=== PATIENT | male | born 1965 | race Caucasian/White ===

== ENCOUNTER 2018-12-12 05:32 | Inpatient (IN) | payer OTHER ==
[~2018-12-12] VITALS: Ht 185.4 cm; Wt 133.2 kg
--- NOTE | 2018-12-12 05:49 | NUR ---
PT IN HOSPITAL GOWN. PT ON 3L N/C OF O2. PT VSS. WILL CONTINUE TO MONITOR. PT GOING TO RAD AT THIS TIME.
[2018-12-12 06:27] LABS: BASOPHILS # (AUTO) 0.08 x10^3/uL (0-0.1); BASOPHILS % (AUTO) 0 % (0-1); EOSINOPHILS % (AUTO) 0 % (1-7); LYMPHOCYTES # (AUTO) 0.88 x10^3/uL (1-3.4); LYMPHOCYTES % (AUTO) 5 % (22-44); MD NO; MEAN CORPUSCULAR HEMOGLOBIN 30.7 pg (27.5-34.5); MEAN CORPUSCULAR HGB CONC 34.6 g/dL (33.2-36.2); MEAN CORPUSCULAR VOLUME 88.7 fL (81-97); MEAN PLATELET VOLUME 8.6 fL (7.4-10.4); MONOCYTES # (AUTO) 0.63 x10^3/uL (0.2-0.8); MONOCYTES % (AUTO) 4 % (2-9); NEUTROPHILS # (AUTO) 16.35 x10^3/uL (1.8-6.8); NEUTROPHILS % (AUTO) 91 % (42-75); PLATELET COUNT 252 x10^3/uL (130-400); RED BLOOD COUNT 5.31 x10^6/uL (4.38-5.82)
[2018-12-12] MEDS ORDERED: SODIUM CHLORIDE FLUSH 10ML SYR IVF ONE (06:30)
[2018-12-12 06:35] LABS: ALBUMIN 3.9 g/dL (3.4-5.0); ANION GAP 9 mmol/L (5-15); CALCIUM 8.9 mg/dL (8.5-10.1); CHLORIDE 112 mmol/L (98-107); CREATININE 1.05 mg/dL (0.7-1.3)
[2018-12-12 06:37] LABS: CREATINE KINASE, TOTAL 434 U/L (39-308)
--- NOTE | 2018-12-12 06:48 | NUR ---
PT RESTING CALMLY IN BED. VSS. BEDSIDE REPORT TO SOLA CONDON.
[2018-12-12] MEDS ORDERED: SODIUM CHLORIDE 0.9% 1,000 ML IV ONE (07:00)
--- NOTE | 2018-12-12 08:40 | NUR ---
SBAR TO ENRIQUE CONDON VIA TELEPHONE
[2018-12-12] MEDS ORDERED: FENTANYL PF 250 MCG/5ML ONE (09:35)
[2018-12-12] MEDS ORDERED: PROPOFOL 10 MG/ML, 20ML ONE (10:06)
[2018-12-12] MEDS ORDERED: SUCCINYLCHOLINE 20 MG/ML, 10ML ONE (10:06)
[2018-12-12] MEDS ORDERED: CEFAZOLIN 1,000 MG ONE (10:06)
[2018-12-12] MEDS ORDERED: DEXAMETHASONE 4 MG/ML, 1ML ONE (10:06)
[2018-12-12] MEDS ORDERED: ROCURONIUM 10MG/ML,5ML ONE (10:06)
[2018-12-12] MEDS ORDERED: ONDANSETRON 2MG/ML, 2ML ONE (10:06)
[2018-12-12] MEDS ORDERED: PROMETHAZINE 12.5 MG SUPP PR PRN (10:30)
[2018-12-12] MEDS ORDERED: MIDAZOLAM 1 MG/ML, 2ML IV PRN (10:30)
[2018-12-12] MEDS ORDERED: PROMETHAZINE 25 MG SUPP PR PRN (10:30)
[2018-12-12] MEDS ORDERED: DIAZEPAM 5 MG/ML, 2ML IVPush PRN (10:30)
[2018-12-12] MEDS ORDERED: MEPERIDINE/PF 25MG/0.5ML IVPush PRN (10:30)
[2018-12-12] MEDS ORDERED: ONDANSETRON ODT 8 MG PO PRN (10:30)
[2018-12-12] MEDS ORDERED: OXYcodone 5 MG/5 ML ORAL.SOL UDC PO PRN (10:30)
[2018-12-12] MEDS ORDERED: DIPHENHYDRAMINE 50 MG/ML, 1ML IVPush PRN (10:30)
[2018-12-12] MEDS ORDERED: EPHEDRINE 50 MG/ML, 1ML IM PRN (10:30)
[2018-12-12] MEDS ORDERED: PROMETHAZINE 25 MG/ML, 1ML IV PRN (10:30)
[2018-12-12] MEDS ORDERED: ONDANSETRON 2MG/ML, 2ML IV PRN ×2 (10:30→14:00)
[2018-12-12] MEDS ORDERED: hydrALAzine 20 MG/ML, 1ML IV PRN (10:30)
[2018-12-12] MEDS ORDERED: MORPHINE SULFATE 4 MG/ML, 1ML IVPush PRN (10:30)
[2018-12-12] MEDS ORDERED: EPHEDRINE 50 MG/ML, 1ML IVPush PRN (10:30)
[2018-12-12] MEDS ORDERED: METOPROLOL 1 MG/ML, 5ML IV PRN (10:30)
[2018-12-12] MEDS ORDERED: ONDANSETRON 2MG/ML, 2ML IVPush PRN (11:00)
[2018-12-12] MEDS ORDERED: ONDANSETRON ODT 4 MG PO PRN (11:00)
[2018-12-12] MEDS ORDERED: LABETALOL 5MG/ML, 20ML IVPush PRN (11:00)
[2018-12-12] MEDS ORDERED: METOPROLOL 1 MG/ML, 5ML ONE (11:22)
[2018-12-12] MEDS ORDERED: MEPERIDINE/PF 25MG/ML,1ML ONE (11:47)
[2018-12-12] MEDS ORDERED: FENTANYL PF 100 MCG/2ML ONE (11:51)
[2018-12-12] MEDS: FENTANYL PF 100 MCG/2ML IV PRN ×4 (11:52→12:20)
[2018-12-12 12:07] LABS: FREE T4 (FREE THYROXINE) 1.03 ng/dL (0.76-1.46)
[2018-12-12] MEDS ORDERED: OXYcodone 5 MG/5 ML ORAL.SOL UDC ONE (12:33)
[2018-12-12 13:25] VITALS: BP 109/60
[2018-12-12] MEDS: POTASSIUM CHLORIDE 20 MEQ in D5%-0.45% NACL 1,000 ML IV SCH ×2 (14:00→22:02)
[2018-12-12] MEDS: KETOROLAC 30 MG/1 ML IV SCH ×2 (14:54→22:01)
[2018-12-12] MEDS ORDERED: CEFTRIAXONE PMX 1GM/50ML 50 ML IV SCH (15:00)
[2018-12-12] MEDS: CEFAZOLIN PMX 2GM/50ML 50 ML IVPB SCH (17:51)
[2018-12-12 19:32] VITALS: BP 102/67
[2018-12-12] MEDS ORDERED: DOXYCYCLINE 100MG TABLET PO SCH (21:00)
[2018-12-12] MEDS: D5%-0.45% NACL 1,000 ML IV SCH (21:00)
[2018-12-12] MEDS: SODIUM CHLORIDE FLUSH 10ML SYR IVF SCH (21:00)
[2018-12-12 23:50] VITALS: BP 95/61
[2018-12-13] MEDS: D5%-0.45% NACL 1,000 ML IV SCH ×3 (01:37→19:37)
[2018-12-13] MEDS: CEFAZOLIN PMX 2GM/50ML 50 ML IVPB SCH (01:37)
[2018-12-13 02:04] VITALS: BP 99/62
[2018-12-13 04:34] VITALS: BP 111/63
[2018-12-13 05:47] LABS: BASOPHILS # (AUTO) 0.02 x10^3/uL (0-0.1); BASOPHILS % (AUTO) 0 % (0-1); EOSINOPHILS # (AUTO) 0.01 x10^3/uL (0-0.4); EOSINOPHILS % (AUTO) 0 % (1-7); LYMPHOCYTES # (AUTO) 1.97 x10^3/uL (1-3.4); LYMPHOCYTES % (AUTO) 15 % (22-44); MD NO; MEAN CORPUSCULAR HEMOGLOBIN 30.7 pg (27.5-34.5); MEAN CORPUSCULAR HGB CONC 34.4 g/dL (33.2-36.2); MEAN CORPUSCULAR VOLUME 89.3 fL (81-97); MEAN PLATELET VOLUME 8.8 fL (7.4-10.4); MONOCYTES # (AUTO) 1.35 x10^3/uL (0.2-0.8); MONOCYTES % (AUTO) 11 % (2-9); NEUTROPHILS # (AUTO) 9.59 x10^3/uL (1.8-6.8); NEUTROPHILS % (AUTO) 74 % (42-75); PLATELET COUNT 230 x10^3/uL (130-400); RED BLOOD COUNT 4.04 x10^6/uL (4.38-5.82); RED CELL DISTRIBUTION WIDTH 13.6 % (9.4-14.8)
[2018-12-13 05:49] LABS: CHLORIDE 111 mmol/L (98-107)
[2018-12-13] MEDS: KETOROLAC 30 MG/1 ML IV SCH (05:59)
[2018-12-13] MEDS: POTASSIUM CHLORIDE 20 MEQ in D5%-0.45% NACL 1,000 ML IV SCH (05:59)
[2018-12-13 06:05] LABS: ALANINE AMINOTRANSFERASE 20 U/L (12-78); ALKALINE PHOSPHATASE 54 U/L (45-117); ANION GAP 5 mmol/L (5-15); BILIRUBIN,TOTAL 0.4 mg/dL (0.2-1.0); CALCIUM 8.3 mg/dL (8.5-10.1); CREATININE 1.11 mg/dL (0.7-1.3); THYROID STIMULATING HORMONE 0.899 mIU/L (0.358-3.740); TOTAL PROTEIN 5.5 g/dL (6.4-8.2)
[2018-12-13 08:05] VITALS: BP 111/56
[2018-12-13] MEDS ORDERED: OMNIPAQUE 350 MG/ML, 75ML BOTTLE ONE (09:09)
[2018-12-13] MEDS: SENNA/DOCUSATE TABLET PO SCH (09:18)
[2018-12-13] MEDS: OXYcodone/APAP 5/325MG TABLET PO PRN ×2 (09:19→16:54)
[2018-12-13] MEDS: SODIUM CHLORIDE FLUSH 10ML SYR IVF SCH ×2 (09:21→19:37)
[2018-12-13] MEDS: ENOXAPARIN 40 MG/0.4 ML SQ SCH (14:14)
[2018-12-13 16:15] VITALS: BP 101/57
[2018-12-13 20:38] VITALS: BP 110/63
[2018-12-14] MEDS: OXYcodone/APAP 5/325MG TABLET PO PRN ×4 (00:22→19:19)
[2018-12-14 01:50] VITALS: BP 101/59
[2018-12-14] MEDS: POLYETHYLENE GLYCOL 17 GM PACKET PO PRN (04:47)
[2018-12-14] MEDS: D5%-0.45% NACL 1,000 ML IV SCH ×3 (04:48→19:20)
[2018-12-14 05:38] LABS: CHLORIDE 109 mmol/L (98-107)
[2018-12-14 05:51] LABS: ALANINE AMINOTRANSFERASE 22 U/L (12-78); ALBUMIN 2.8 g/dL (3.4-5.0); ALKALINE PHOSPHATASE 51 U/L (45-117); ANION GAP 5 mmol/L (5-15); BILIRUBIN,TOTAL 0.6 mg/dL (0.2-1.0); CALCIUM 7.6 mg/dL (8.5-10.1); CREATININE 0.75 mg/dL (0.7-1.3); TOTAL PROTEIN 5.3 g/dL (6.4-8.2)
[2018-12-14 06:15] LABS: BASOPHILS # (AUTO) 0.02 x10^3/uL (0-0.1); BASOPHILS % (AUTO) 0 % (0-1); EOSINOPHILS # (AUTO) 0.16 x10^3/uL (0-0.4); EOSINOPHILS % (AUTO) 2 % (1-7); LYMPHOCYTES # (AUTO) 2.14 x10^3/uL (1-3.4); LYMPHOCYTES % (AUTO) 23 % (22-44); MD NO; MEAN CORPUSCULAR HEMOGLOBIN 31.1 pg (27.5-34.5); MEAN CORPUSCULAR HGB CONC 35.2 g/dL (33.2-36.2); MEAN CORPUSCULAR VOLUME 88.3 fL (81-97); MEAN PLATELET VOLUME 8.2 fL (7.4-10.4); MONOCYTES # (AUTO) 0.97 x10^3/uL (0.2-0.8); MONOCYTES % (AUTO) 11 % (2-9); NEUTROPHILS # (AUTO) 5.91 x10^3/uL (1.8-6.8); NEUTROPHILS % (AUTO) 64 % (42-75); PLATELET COUNT 183 x10^3/uL (130-400); RED BLOOD COUNT 3.46 x10^6/uL (4.38-5.82); RED CELL DISTRIBUTION WIDTH 13.8 % (9.4-14.8)
[2018-12-14 07:58] VITALS: BP 121/71
[2018-12-14] MEDS: SENNA/DOCUSATE TABLET PO SCH (08:58)
[2018-12-14] MEDS: SODIUM CHLORIDE FLUSH 10ML SYR IVF SCH ×2 (09:01→19:19)
[2018-12-14 14:05] VITALS: BP 110/58
[2018-12-14] MEDS: ENOXAPARIN 40 MG/0.4 ML SQ SCH (14:06)
[2018-12-14 18:59] VITALS: BP 107/64
[2018-12-14] MEDS ORDERED: SODIUM CHLORIDE 0.9% 1,000ML IVBOLUS ONE (19:00)
[2018-12-15] MEDS: OXYcodone/APAP 5/325MG TABLET PO PRN ×4 (00:52→15:44)
[2018-12-15 02:05] VITALS: BP 99/59
[2018-12-15] MEDS: D5%-0.45% NACL 1,000 ML IV SCH (06:00)
[2018-12-15] MEDS: POLYETHYLENE GLYCOL 17 GM PACKET PO PRN (06:28)
[2018-12-15 06:59] VITALS: BP 110/61
[2018-12-15] MEDS ORDERED: BISACODYL 10 MG SUPP PR PRN (09:00)
[2018-12-15] MEDS: MAGNESIUM HYDROXIDE 8%, 30ML UDC PO SCH ×2 (10:13→20:14)
[2018-12-15] MEDS: SENNA/DOCUSATE TABLET PO SCH (10:13)
[2018-12-15] MEDS: SODIUM CHLORIDE FLUSH 10ML SYR IVF SCH ×2 (10:15→20:15)
[2018-12-15] MEDS ORDERED: LORazepam 2 MG/ML, 1ML IVPush PRN (11:30)
[2018-12-15] MEDS ORDERED: LORazepam 2 MG/ML, 1ML ONE (11:33)
[2018-12-15 12:05] VITALS: BP 86/41
[2018-12-15] MEDS ORDERED: OMNIPAQUE 350 MG/ML, 150 ML BOTTLE ONE (12:36)
[2018-12-15 12:59] VITALS: BP 121/67
[2018-12-15] MEDS: ENOXAPARIN 40 MG/0.4 ML SQ SCH (13:23)
[2018-12-15] MEDS ORDERED: PANTOPRAZOLE 20MG TABLET PO ONE (13:30)
[2018-12-15 16:26] VITALS: BP 110/69
[2018-12-15 19:54] VITALS: BP 107/68
[2018-12-15] MEDS ORDERED: HEPARIN 25,000 UNITS/500ML PMX 500 ML IV PRN (20:00)
[2018-12-15] MEDS: METOPROLOL TARTRATE 25 MG TABLET PO SCH (20:03)
[2018-12-15] MEDS: ASPIRIN 325 MG TABLET EC PO SCH (20:13)
[2018-12-15] MEDS ORDERED: METOPROLOL TARTRATE 25 MG TABLET PO SCH (20:30)
[2018-12-15 20:34] LABS: BASOPHILS # (AUTO) 0.03 x10^3/uL (0-0.1); BASOPHILS % (AUTO) 1 % (0-1); EOSINOPHILS # (AUTO) 0.27 x10^3/uL (0-0.4); EOSINOPHILS % (AUTO) 4 % (1-7); LYMPHOCYTES # (AUTO) 1.86 x10^3/uL (1-3.4); LYMPHOCYTES % (AUTO) 27 % (22-44); MD NO; MEAN CORPUSCULAR HEMOGLOBIN 30.8 pg (27.5-34.5); MEAN CORPUSCULAR HGB CONC 35.1 g/dL (33.2-36.2); MEAN CORPUSCULAR VOLUME 87.9 fL (81-97); MEAN PLATELET VOLUME 8.2 fL (7.4-10.4); MONOCYTES # (AUTO) 0.65 x10^3/uL (0.2-0.8); MONOCYTES % (AUTO) 10 % (2-9); NEUTROPHILS # (AUTO) 4.07 x10^3/uL (1.8-6.8); NEUTROPHILS % (AUTO) 59 % (42-75); PLATELET COUNT 205 x10^3/uL (130-400); RED BLOOD COUNT 3.16 x10^6/uL (4.38-5.82); RED CELL DISTRIBUTION WIDTH 13.4 % (9.4-14.8)
[2018-12-15 20:56] LABS: CHOL/HDL RATIO 3.8; LDL/HDL RATIO 1.9 (0.5-3.0)
[2018-12-15] MEDS: ATORVASTATIN 40 MG TABLET PO SCH (21:05)
[2018-12-15] MEDS: HEPARIN 5,000 UNITS/ML, 1ML IV PRN (22:01)
[2018-12-16 00:57] VITALS: BP 114/69
[2018-12-16] MEDS: OXYcodone/APAP 5/325MG TABLET PO PRN ×6 (01:28→22:42)
[2018-12-16] MEDS: METOPROLOL TARTRATE 25 MG TABLET PO SCH ×2 (05:19→18:04)
[2018-12-16] MEDS: ASPIRIN 325 MG TABLET EC PO SCH (05:19)
[2018-12-16 05:28] LABS: BASOPHILS # (AUTO) 0.02 x10^3/uL (0-0.1); BASOPHILS % (AUTO) 0 % (0-1); EOSINOPHILS # (AUTO) 0.29 x10^3/uL (0-0.4); EOSINOPHILS % (AUTO) 4 % (1-7); LYMPHOCYTES # (AUTO) 1.83 x10^3/uL (1-3.4); LYMPHOCYTES % (AUTO) 25 % (22-44); MD NO; MEAN CORPUSCULAR VOLUME 88.6 fL (81-97); MONOCYTES # (AUTO) 0.66 x10^3/uL (0.2-0.8); MONOCYTES % (AUTO) 9 % (2-9); NEUTROPHILS # (AUTO) 4.46 x10^3/uL (1.8-6.8); NEUTROPHILS % (AUTO) 61 % (42-75); PLATELET COUNT 203 x10^3/uL (130-400); RED BLOOD COUNT 3.09 x10^6/uL (4.38-5.82); RED CELL DISTRIBUTION WIDTH 13.7 % (9.4-14.8)
[2018-12-16] MEDS: HEPARIN 5,000 UNITS/ML, 1ML IV PRN ×2 (05:50→12:47)
[2018-12-16 06:43] VITALS: BP 104/66
[2018-12-16 07:12] LABS: ALANINE AMINOTRANSFERASE 20 U/L (12-78); ALBUMIN 2.5 g/dL (3.4-5.0); ANION GAP 6 mmol/L (5-15); CALCIUM 8.1 mg/dL (8.5-10.1); CHLORIDE 110 mmol/L (98-107); CREATININE 0.74 mg/dL (0.7-1.3)
[2018-12-16 07:14] LABS: ALKALINE PHOSPHATASE 55 U/L (45-117); BILIRUBIN,TOTAL 0.6 mg/dL (0.2-1.0); TOTAL PROTEIN 5.3 g/dL (6.4-8.2)
[2018-12-16] MEDS: SENNA/DOCUSATE TABLET PO SCH (10:08)
[2018-12-16] MEDS: SODIUM CHLORIDE FLUSH 10ML SYR IVF SCH ×2 (10:08→21:00)
[2018-12-16] MEDS ORDERED: SODIUM CHLORIDE 0.9% 1,000 ML IV SCH (11:00)
[2018-12-16 12:16] LABS: BASOPHILS # (AUTO) 0.02 x10^3/uL (0-0.1); BASOPHILS % (AUTO) 0 % (0-1); EOSINOPHILS # (AUTO) 0.25 x10^3/uL (0-0.4); EOSINOPHILS % (AUTO) 4 % (1-7); LYMPHOCYTES # (AUTO) 1.62 x10^3/uL (1-3.4); LYMPHOCYTES % (AUTO) 24 % (22-44); MD NO; MEAN CORPUSCULAR HGB CONC 35.1 g/dL (33.2-36.2); MEAN CORPUSCULAR VOLUME 88.5 fL (81-97); MONOCYTES # (AUTO) 0.53 x10^3/uL (0.2-0.8); MONOCYTES % (AUTO) 8 % (2-9); NEUTROPHILS # (AUTO) 4.32 x10^3/uL (1.8-6.8); NEUTROPHILS % (AUTO) 64 % (42-75); PLATELET COUNT 213 x10^3/uL (130-400); RED BLOOD COUNT 3.19 x10^6/uL (4.38-5.82); RED CELL DISTRIBUTION WIDTH 13.4 % (9.4-14.8)
[2018-12-16 12:47] VITALS: BP 121/76
[2018-12-16] MEDS ORDERED: VERAPAMIL 2.5 MG/ML, 2ML ONE (13:41)
[2018-12-16] MEDS ORDERED: HEPARIN 1,000 UNITS/ML, 10ML ONE (13:41)
[2018-12-16] MEDS ORDERED: FENTANYL PF 100 MCG/2ML ONE (13:41)
[2018-12-16] MEDS ORDERED: MIDAZOLAM 1 MG/ML, 5ML ONE (13:41)
[2018-12-16] MEDS: SODIUM CHLORIDE 0.9% 1,000 ML IV SCH ×2 (15:13→22:40)
[2018-12-16 19:18] LABS: BASOPHILS # (AUTO) 0.03 x10^3/uL (0-0.1); BASOPHILS % (AUTO) 0 % (0-1); EOSINOPHILS # (AUTO) 0.32 x10^3/uL (0-0.4); EOSINOPHILS % (AUTO) 4 % (1-7); LYMPHOCYTES # (AUTO) 1.75 x10^3/uL (1-3.4); LYMPHOCYTES % (AUTO) 22 % (22-44); MD NO; MEAN CORPUSCULAR HEMOGLOBIN 30.8 pg (27.5-34.5); MEAN CORPUSCULAR HGB CONC 34.7 g/dL (33.2-36.2); MEAN CORPUSCULAR VOLUME 88.9 fL (81-97); MEAN PLATELET VOLUME 7.7 fL (7.4-10.4); MONOCYTES % (AUTO) 8 % (2-9); NEUTROPHILS # (AUTO) 5.17 x10^3/uL (1.8-6.8); NEUTROPHILS % (AUTO) 66 % (42-75); PLATELET COUNT 270 x10^3/uL (130-400); RED BLOOD COUNT 3.34 x10^6/uL (4.38-5.82); RED CELL DISTRIBUTION WIDTH 13.5 % (9.4-14.8)
[2018-12-16 19:27] VITALS: BP 97/63
[2018-12-16] MEDS: ATORVASTATIN 40 MG TABLET PO SCH (20:57)
[2018-12-17 01:09] VITALS: BP 103/66
[2018-12-17 05:12] LABS: BASOPHILS # (AUTO) 0.02 x10^3/uL (0-0.1); BASOPHILS % (AUTO) 0 % (0-1); EOSINOPHILS # (AUTO) 0.32 x10^3/uL (0-0.4); EOSINOPHILS % (AUTO) 4 % (1-7); LYMPHOCYTES # (AUTO) 1.72 x10^3/uL (1-3.4); LYMPHOCYTES % (AUTO) 22 % (22-44); MD NO; MEAN CORPUSCULAR HEMOGLOBIN 31.2 pg (27.5-34.5); MEAN CORPUSCULAR HGB CONC 35.1 g/dL (33.2-36.2); MEAN CORPUSCULAR VOLUME 88.8 fL (81-97); MEAN PLATELET VOLUME 8.2 fL (7.4-10.4); MONOCYTES # (AUTO) 0.72 x10^3/uL (0.2-0.8); MONOCYTES % (AUTO) 9 % (2-9); NEUTROPHILS # (AUTO) 5.06 x10^3/uL (1.8-6.8); NEUTROPHILS % (AUTO) 65 % (42-75); PLATELET COUNT 230 x10^3/uL (130-400); RED BLOOD COUNT 3.05 x10^6/uL (4.38-5.82); RED CELL DISTRIBUTION WIDTH 13.5 % (9.4-14.8)
[2018-12-17] MEDS: SODIUM CHLORIDE 0.9% 1,000 ML IV SCH (05:46)
[2018-12-17] MEDS: ASPIRIN 325 MG TABLET EC PO SCH (06:01)
[2018-12-17] MEDS: METOPROLOL TARTRATE 25 MG TABLET PO SCH (06:02)
[2018-12-17 07:06] VITALS: BP 130/83
[2018-12-17] MEDS: SODIUM CHLORIDE FLUSH 10ML SYR IVF SCH (08:03)
[2018-12-17] MEDS: SENNA/DOCUSATE TABLET PO SCH (08:03)
[2018-12-17] MEDS: OXYcodone/APAP 5/325MG TABLET PO PRN (08:03)
[2018-12-17] MEDS: MAGNESIUM HYDROXIDE 8%, 30ML UDC PO SCH (08:03)
[2018-12-17] MEDS ORDERED: METO25TA35 PO (10:49)
[2018-12-17] MEDS ORDERED: ASPI-650 PO (10:49)
[2018-12-17 11:29] LABS: BASOPHILS # (AUTO) 0.05 x10^3/uL (0-0.1); BASOPHILS % (AUTO) 1 % (0-1); EOSINOPHILS # (AUTO) 0.25 x10^3/uL (0-0.4); EOSINOPHILS % (AUTO) 3 % (1-7); LYMPHOCYTES # (AUTO) 1.38 x10^3/uL (1-3.4); LYMPHOCYTES % (AUTO) 18 % (22-44); MD NO; MEAN CORPUSCULAR VOLUME 88.6 fL (81-97); MEAN PLATELET VOLUME 7.7 fL (7.4-10.4); MONOCYTES # (AUTO) 0.65 x10^3/uL (0.2-0.8); MONOCYTES % (AUTO) 8 % (2-9); NEUTROPHILS # (AUTO) 5.48 x10^3/uL (1.8-6.8); NEUTROPHILS % (AUTO) 70 % (42-75); PLATELET COUNT 259 x10^3/uL (130-400); RED BLOOD COUNT 3.26 x10^6/uL (4.38-5.82); RED CELL DISTRIBUTION WIDTH 13.8 % (9.4-14.8)
[2018-12-17] MEDS ORDERED: ATOR40TA PO (12:48)
[2018-12-17 14:06] VITALS: BP 123/80
== END 2018-12-17 14:27 | DRG 480 ==
LOC: ED 08:03 → EDIP 08:43 → 4NOR 13:34 → 4WST 12-15 15:38 → 5SO 12-15 23:50
PROVIDERS: ADMIT Internal Medicine; ATTEND Internal Medicine
PROC: 0QS606Z Reposition Right Upper Femur with Intramedullary Internal Fixation Device, Open Approach (ICD-10-PCS; principal; 2018-12-12 09:30)
DX: S72.141A Displaced intertrochanteric fracture of right femur, initial encounter for closed fracture (principal); I21.4 Non-ST elevation (NSTEMI) myocardial infarction; I50.30 Unspecified diastolic (congestive) heart failure; M62.82 Rhabdomyolysis; E44.0 Moderate protein-calorie malnutrition; I11.0 Hypertensive heart disease with heart failure; Z68.38 Body mass index [BMI] 38.0-38.9, adult; K76.89 Other specified diseases of liver; R00.0 Tachycardia, unspecified; D64.9 Anemia, unspecified; E66.9 Obesity, unspecified; E78.5 Hyperlipidemia, unspecified; S72.23XA Displaced subtrochanteric fracture of unspecified femur, initial encounter for closed fracture; W17.89XA Other fall from one level to another, initial encounter; Y93.01 Activity, walking, marching and hiking; Y92.89 Other specified places as the place of occurrence of the external cause; Y99.8 Other external cause status; Z79.82 Long term (current) use of aspirin; Z79.899 Other long term (current) drug therapy; Z80.1 Family history of malignant neoplasm of trachea, bronchus and lung; Z85.828 Personal history of other malignant neoplasm of skin; Z87.891 Personal history of nicotine dependence
CPT/HCPCS: 36415; 36430; 71045; 71260; 71275; 76000; 80048; 80053; 80061; 82040; 82550; 83735; 84100; 84439; 84443; 84484; 85025; 85520; 86850; 86900; 93005; 93306; 93454; 96360; 96361; 97163; 99156; C1713; C1769; C1894; G0378; J0690; J1100; J1644; J1650; J1885; J2175; J2250; J2405; J2704; J3010; Q0162; Q9967; J0330; J2060; J7030

== ENCOUNTER 2019-07-02 05:18 | Emergency (ER) | payer OTHER ==
[~2019-07-02] VITALS: Ht 185.4 cm; Wt 127.0 kg
[~2019-07-02 05:18] MED LIST: ASPI-650 PO; ATOR40TA PO; METO25TA35 PO
--- NOTE | 2019-07-02 06:00 | NUR ---
IV STARTED. POC DISCUSSED. PT ATTACHED TO ALL MONITORING. CALL LIGHT ON LAP. PT DENIES FURTHER NEEDS AT THIS TIME.
[2019-07-02 06:26] LABS: BASOPHILS # (AUTO) 0.04 x10^3/uL (0-0.1); BASOPHILS % (AUTO) 1 % (0-1); EOSINOPHILS # (AUTO) 0.22 x10^3/uL (0-0.4); EOSINOPHILS % (AUTO) 3 % (1-7); LYMPHOCYTES # (AUTO) 1.85 x10^3/uL (1-3.4); LYMPHOCYTES % (AUTO) 27 % (22-44); MD NO; MEAN CORPUSCULAR HEMOGLOBIN 30.2 pg (27.5-34.5); MEAN CORPUSCULAR VOLUME 91.6 fL (81-97); MEAN PLATELET VOLUME 8.4 fL (7.4-10.4); MONOCYTES # (AUTO) 0.51 x10^3/uL (0.2-0.8); MONOCYTES % (AUTO) 8 % (2-9); NEUTROPHILS # (AUTO) 4.12 x10^3/uL (1.8-6.8); NEUTROPHILS % (AUTO) 61 % (42-75); PLATELET COUNT 209 x10^3/uL (130-400); RED BLOOD COUNT 5.64 x10^6/uL (4.38-5.82)
[2019-07-02 06:38] LABS: ANION GAP 5 mmol/L (5-15); CALCIUM 9.2 mg/dL (8.5-10.1); CHLORIDE 113 mmol/L (98-107)
--- NOTE | 2019-07-02 06:42 | NUR ---
CT PENDING LAB/CREATINE.
[2019-07-02 06:43] LABS: ALANINE AMINOTRANSFERASE 28 U/L (12-78); ALKALINE PHOSPHATASE 94 U/L (45-117); BILIRUBIN,TOTAL 0.6 mg/dL (0.2-1.0); TROPONIN I < 0.015 ng/mL (0.000-0.045)
--- NOTE | 2019-07-02 06:52 | NUR ---
REPORT RECEIVED, CARE ASSUMED
--- NOTE | 2019-07-02 07:05 | NUR ---
PT LAYING ON GURNEY. DOZING INTERMITTENTLY, AROUSES EASILY. PT SB PER MONITOR. AUTO BP AND PULSE OX IN PLACE. PT AWARE OF WAITING FOR TRANSPORT TO RADIOLOGY FOR CT. PT PROVIDED WITH BLANKET. NO OTHER NEEDS EXPRESSED AT THIS TIME.
--- NOTE | 2019-07-02 08:02 | NUR ---
PT RETURN TO ROOM FROM CT. NO SIG CHANGE IN CONDITION NOTED. CONT SB PER MONITOR. NO NEEDS EXPRESSED AT THIS TIME. PT AWARE OF WAITING FOR TEST RESULTS.
[2019-07-02 08:03] VITALS: BP 143/90
[2019-07-02] MEDS ORDERED: OMNIPAQUE 350 MG/ML, 100ML BOTTLE ONE (08:05)
--- NOTE | 2019-07-02 08:59 | NUR ---
REVIEWED DC INSTRUCTIONS WITH PT, UNDERSTANDING VERBALIZED. IV DC'D WITH CANNULA INTACT. PT LEFT AMB, LIMPING GAIT. PT STATES "I BROKE MY FEMUR IN DECEMBER, SO I'M STILL LIMPING."
== END 2019-07-02 09:02 | disposition home or self-care (01) ==
LOC: ED 06:00
DX: R07.89 Other chest pain (principal); E78.5 Hyperlipidemia, unspecified
CPT/HCPCS: 36415; 71275; 80053; 83880; 84484; 85025; 93005; 99284; Q9967

== ENCOUNTER 2019-07-08 18:48 | Emergency (ER) | payer OTHER ==
[~2019-07-08] VITALS: Ht 185.4 cm; Wt 129.9 kg
[2019-07-08 18:56] VITALS: BP 159/91
[2019-07-08] MEDS ORDERED: MAALOX/HYOSCYAMINE/LIDOCAINE 45 ML BTL PO ONE (19:30)
[2019-07-08] MEDS ORDERED: ASPIRIN 81 MG TABLET CHEW PO ONE (19:30)
[2019-07-08] MEDS ORDERED: SODIUM CHLORIDE FLUSH 10ML SYR IVF ONE (19:30)
[2019-07-08] MEDS ORDERED: ASPIRIN 81 MG TABLET CHEW ONE (19:37)
[2019-07-08 19:47] LABS: BASOPHILS # (AUTO) 0.11 x10^3/uL (0-0.1); BASOPHILS % (AUTO) 2 % (0-1); EOSINOPHILS # (AUTO) 0.18 x10^3/uL (0-0.4); EOSINOPHILS % (AUTO) 3 % (1-7); LYMPHOCYTES # (AUTO) 1.98 x10^3/uL (1-3.4); LYMPHOCYTES % (AUTO) 27 % (22-44); MD NO; MEAN CORPUSCULAR HEMOGLOBIN 30.5 pg (27.5-34.5); MEAN CORPUSCULAR HGB CONC 33.7 g/dL (33.2-36.2); MEAN CORPUSCULAR VOLUME 90.5 fL (81-97); MEAN PLATELET VOLUME 8.3 fL (7.4-10.4); MONOCYTES # (AUTO) 0.53 x10^3/uL (0.2-0.8); MONOCYTES % (AUTO) 7 % (2-9); NEUTROPHILS # (AUTO) 4.55 x10^3/uL (1.8-6.8); NEUTROPHILS % (AUTO) 62 % (42-75); PLATELET COUNT 275 x10^3/uL (130-400); RED BLOOD COUNT 5.24 x10^6/uL (4.38-5.82); RED CELL DISTRIBUTION WIDTH 14.6 % (9.4-14.8)
[2019-07-08 19:54] LABS: ALANINE AMINOTRANSFERASE 48 U/L (12-78); ALBUMIN 3.5 g/dL (3.4-5.0); ANION GAP 6 mmol/L (5-15); CALCIUM 8.6 mg/dL (8.5-10.1); CHLORIDE 111 mmol/L (98-107)
[2019-07-08 19:59] LABS: ALKALINE PHOSPHATASE 95 U/L (45-117); BILIRUBIN,TOTAL 0.5 mg/dL (0.2-1.0); CREATININE 0.95 mg/dL (0.7-1.3); TROPONIN I < 0.015 ng/mL (0.000-0.045)
[2019-07-08] MEDS ORDERED: MAALOX/HYOSCYAMINE/LIDOCAINE 45 ML BTL ONE (20:16)
--- NOTE | 2019-07-08 20:17 | NUR ---
Patient ambulated into room. Reports having chest discomfort similar to a previous episode with a known diagnoses of esophogeal stricture. 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 Patient blood pressure wnl, no diaphoresis, sense of impending doom, no radiation of pain. Replaced blood pressure cuff, and placed pulsatile oxygen sensor. Vital signs within normal limits. Patient assessed by provider. RN to bedside for aspirin administration per provider order. (see eMAR.)
--- NOTE | 2019-07-08 20:22 | NUR ---
RN returned to bedside to adminster gi cocktail. Ultrasound at bedside, will adminster when imaging complete.
== END 2019-07-08 21:09 | disposition home or self-care (01) ==
LOC: ED 20:41
DX: K29.00 Acute gastritis without bleeding (principal)
CPT/HCPCS: 36415; 76700; 80053; 83690; 83880; 84484; 85025; 93005; 99284